=== PATIENT | female | born 1990 | race Caucasian/White ===

== ENCOUNTER 2023-11-08 10:56 | Emergency (ER) | payer OTHER ==
[~2023-11-08] VITALS: Ht 154.9 cm; Wt 70.8 kg
[2023-11-08 10:59] VITALS: BP 125/82; PULSE 101; RESP 18; TEMP 97.4; O2SAT 99
[2023-11-08 11:15] VITALS: TEMP 97.4
[2023-11-08 11:41] VITALS: O2SAT 99
[2023-11-08] MEDS: NACL 0.9% 1,000 ML IV ONE (12:45)
[2023-11-08] MEDS: DICYCLOMINE 20 MG/2 ML VIAL IM ONE (12:46)
[2023-11-08] MEDS: ONDANSETRON 4 MG/2 ML VIAL IVP ONE (12:48)
[2023-11-08 12:50] LABS: BASOPHILS % (AUTO) 0.4 % (0.0-2.0); EOSINOPHILS # (AUTO) 0.2 K/uL (0-0.4); EOSINOPHILS % (AUTO) 3.8 % (0.0-4.0); HEMATOCRIT 40.1 % (36-48); HEMOGLOBIN 13.5 g/dL (12.0-16.0); LYMPHOCYTES # (AUTO) 0.9 K/uL (2.5-16.5); LYMPHOCYTES % (AUTO) 20.5 % (20.5-51.1); MEAN CORPUSCULAR HEMOGLOBIN 30 pg (27-31); MEAN CORPUSCULAR HGB CONC 34 g/dL (33-37); MEAN CORPUSCULAR VOLUME 88.8 fL (80-94); MONOCYTES # (AUTO) 0.4 K/uL (0.8-1.0); MONOCYTES % (AUTO) 9.7 % (1.7-9.3); NEUTROPHILS # (AUTO) 2.8 K/uL (1.8-7.7); NEUTROPHILS % (AUTO) 65.6 % (42.2-75.2); PLATELET COUNT (AUTO) 243 K/uL (140-450); RED BLOOD CELL COUNT(AUTO) 4.51 MIL/uL (4.20-5.40); RED CELL DISTRIBUTION WIDTH 13.8 % (11.6-13.7); WHITE BLOOD COUNT (AUTO) 4.3 K/uL (4.8-10.8)
[2023-11-08 12:57] LABS: ANION GAP 14.8 (8-16); CALCIUM 8.4 mg/dL (8.5-10.1); CARBON DIOXIDE 21.8 mmol/L (21-32); CREATININE 0.8 mg/dL (0.6-1.3); POTASSIUM 3.6 mmol/L (3.5-5.1)
[2023-11-08 13:03] LABS: ALBUMIN 3.5 g/dL (3.4-5.0); TOTAL BILIRUBIN 0.3 mg/dL (0.0-1.0); TOTAL PROTEIN, SERUM 8.5 g/dL (6.4-8.2)
[2023-11-08 13:22] LABS: BILIRUBIN,DIRECT 0.1 mg/dL (0.0-0.3)
[2023-11-08] MEDS ORDERED: BEN10 PO (13:52)
[2023-11-08] MEDS ORDERED: MAG-27 PO (13:52)
[2023-11-08 14:09] VITALS: BP 113/79; PULSE 88; RESP 16; O2SAT 96
== END 2023-11-08 14:09 | disposition home or self-care (01) ==
LOC: MED 10:56
DX: R11.10 Vomiting, unspecified (principal); R19.7 Diarrhea, unspecified; R10.10 Upper abdominal pain, unspecified; Z79.899 Other long term (current) drug therapy
CPT/HCPCS: 36415; 80048; 80076; 81002; 81025; 83690; 85025; 96361; 96372; 96374; 99284; J0500; J2405; J7030